=== PATIENT | male | born 1940 | race African-American/Black ===

== ENCOUNTER 2021-05-31 16:32 | Inpatient (IN) | payer MEDICARE, MEDICAID ==
[~2021-05-31] VITALS: Ht 177.8 cm; Wt 93.0 kg
[2021-05-31 18:33] LABS: BASOPHILS % 0.4 % (0.0-2.0); EOSINOPHILS % 4.4 % (0.0-5.0); HEMATOCRIT. 36.8 % (42.0-52.0); HEMOGLOBIN. 11.8 g/dL (14.0-18.0); MEAN CORPUSCULAR HEMOGLOBIN 27.4 pg (28.0-32.0); MEAN CORPUSCULAR VOLUME 85.6 fL (80.0-94.0); MEAN PLATELET VOLUME 7.8 fl (7.4-10.4); MONOCYTES % 7.5 % (2.0-8.0); NEUTROPHILS % 69.7 % (40.0-76.0); PLATELET 321 x1000/uL (130-400)
[2021-05-31 18:38] LABS: CHLORIDE 106 mEq/L (98-107)
[2021-05-31] MEDS ORDERED: PIPERACILLIN/TAZ 3.375G PREMIX 50 ML IV NR (23:30)
[2021-05-31] MEDS ORDERED: PIPERACILLIN/TAZOBACTAM 3.375GM/50ML PREMIX IV ONE (23:30)
[2021-06-01 01:14] LABS: CLARITY URINE CLOUDY (CLEAR); COLOR URINE YELLOW (YELLOW); KETONES URINE NEGATIVE (NEGATIVE); LEUKOCYTE ESTERASE URINE 3+ (NEGATIVE); NITRITE URINE POSITIVE (NEGATIVE); OCCULT BLOOD URINE NEGATIVE (NEGATIVE); PH URINE 5.5 (4.5-8.0); PROTEIN URINE 1+ (NEGATIVE); SPECIFIC GRAVITY URINE 1.015 (1.005-1.030); UROBILINOGEN URINE 0.2 E.U./dL (0.2-1.0)
[2021-06-01] MEDS ORDERED: KETOROLAC 15MG/ML VIAL IV ONE (01:15)
[2021-06-01] MEDS: VANCOMYCIN 1 G PREMIX 200 ML IV SCH ×3 (01:32→15:36)
[2021-06-01 12:00] VITALS: BP 139/49
[2021-06-01] MEDS ORDERED: IPRATROPIUM/ALBUTEROL 0.5-3(2.5)MG/3ML NEB HHN PRN (12:15)
[2021-06-01] MEDS ORDERED: LORAZEPAM 0.5MG TABLET PO PRN (12:15)
[2021-06-01] MEDS ORDERED: ONDANSETRON HCL 4MG/2ML INJ IV PRN (12:15)
[2021-06-01] MEDS ORDERED: HYDROCODONE/ACETAMINOPHEN 5/325MG TABLET PO PRN (12:15)
[2021-06-01] MEDS ORDERED: ACETAMINOPHEN 325MG TABLET PO PRN (12:15)
[2021-06-01] MEDS ORDERED: DOCUSATE SODIUM 100MG CAPSULE PO PRN (12:15)
[2021-06-01] MEDS ORDERED: ASPIRIN 81MG EC TABLET PO NR (14:30)
[2021-06-01 15:30] LABS: INR 1.1; PROTHROMBIN TIME 11.6 sec (9.6-11.0)
[2021-06-01] MEDS: PIPERACILLIN/TAZOBACTAM 3.375 G in DEXTROSE 5% WATER 50 ML IV SCH ×2 (15:36→22:19)
[2021-06-01] MEDS: SODIUM CHLORIDE 0.45% 1,000 ML IV SCH ×2 (15:41→22:20)
[2021-06-01 16:00] VITALS: BP 149/47
[2021-06-01] MEDS ORDERED: ENOXAPARIN 30MG/0.3ML SYR SUBCUT SCH (18:00)
[2021-06-01 19:40] LABS: CLARITY URINE CLOUDY (CLEAR); COLOR URINE YELLOW (YELLOW); KETONES URINE NEGATIVE (NEGATIVE); LEUKOCYTE ESTERASE URINE 3+ (NEGATIVE); NITRITE URINE NEGATIVE (NEGATIVE); OCCULT BLOOD URINE 1+ (NEGATIVE); PROTEIN URINE 1+ (NEGATIVE); SPECIFIC GRAVITY URINE 1.019 (1.005-1.030); UROBILINOGEN URINE 0.2 E.U./dL (0.2-1.0)
[2021-06-01 20:00] VITALS: BP 154/54
[2021-06-01 20:31] VITALS: BP 174/47
[2021-06-02] VITALS: BP 121/43
[2021-06-02 04:00] VITALS: BP 147/66
[2021-06-02] MEDS: PIPERACILLIN/TAZOBACTAM 3.375 G in DEXTROSE 5% WATER 50 ML IV SCH ×3 (05:30→23:00)
[2021-06-02] MEDS: SODIUM CHLORIDE 0.45% 1,000 ML IV SCH ×3 (05:31→23:00)
[2021-06-02 07:26] LABS: BASOPHILS % 0.7 % (0.0-2.0); EOSINOPHILS % 4.7 % (0.0-5.0); HEMATOCRIT. 33.8 % (42.0-52.0); HEMOGLOBIN. 11.1 g/dL (14.0-18.0); LYMPHOCYTES % 15.5 % (20.0-50.0); MEAN CORPUSCULAR VOLUME 85.4 fL (80.0-94.0); MEAN PLATELET VOLUME 8.1 fl (7.4-10.4); MONOCYTES % 10.3 % (2.0-8.0); NEUTROPHILS % 68.8 % (40.0-76.0); PLATELET 312 x1000/uL (130-400); RED BLOOD CELL COUNT 3.96 mill/uL (4.7-6.1); RED CELL DISTRIBUTION WIDTH 14.9 % (11.6-14.6)
[2021-06-02 08:00] VITALS: BP 153/58
[2021-06-02] MEDS: ASPIRIN 81MG EC TABLET PO SCH (08:41)
[2021-06-02 12:00] VITALS: BP 149/57
[2021-06-02] MEDS: VANCOMYCIN 1 G PREMIX 200 ML IV SCH (13:51)
[2021-06-02 16:00] VITALS: BP 123/57
[2021-06-02 20:00] VITALS: BP 153/54
[2021-06-03] VITALS (8 sets, daily range): BP systolic 128–166; BP diastolic 45–98
[2021-06-03] MEDS: PIPERACILLIN/TAZOBACTAM 3.375 G in DEXTROSE 5% WATER 50 ML IV SCH ×3 (07:07→21:05)
[2021-06-03] MEDS: SODIUM CHLORIDE 0.45% 1,000 ML IV SCH (07:08)
[2021-06-03 07:29] LABS: BASOPHILS % 0.8 % (0.0-2.0); EOSINOPHILS % 5.3 % (0.0-5.0); HEMOGLOBIN. 11.4 g/dL (14.0-18.0); LYMPHOCYTES % 11.6 % (20.0-50.0); MEAN CORPUSCULAR HEMOGLOBIN 27.5 pg (28.0-32.0); MEAN CORPUSCULAR VOLUME 84.6 fL (80.0-94.0); MEAN PLATELET VOLUME 7.7 fl (7.4-10.4); MONOCYTES % 8.9 % (2.0-8.0); NEUTROPHILS % 73.4 % (40.0-76.0); PLATELET 311 x1000/uL (130-400); RED BLOOD CELL COUNT 4.14 mill/uL (4.7-6.1); RED CELL DISTRIBUTION WIDTH 14.6 % (11.6-14.6)
[2021-06-03 07:57] LABS: PHOSPHORUS 2.1 mg/dL (2.5-4.9)
[2021-06-03] MEDS: ASPIRIN 81MG EC TABLET PO SCH (08:19)
[2021-06-03] MEDS: CLONIDINE 0.1MG TABLET PO PRN ×2 (09:03→18:12)
[2021-06-03] MEDS ORDERED: HEPARIN SODIUM 1,000 UNIT/1ML VIAL IV ONE (09:41)
[2021-06-03] MEDS: SODIUM CHLORIDE 0.9% 1,000 ML IV SCH ×2 (09:45→19:58)
[2021-06-03] MEDS ORDERED: MAGNESIUM 2 G PREMIX 50 ML IV NR (11:00)
[2021-06-03] MEDS ORDERED: SODIUM PHOS,M-BASIC-D-BASIC 15 MM in DEXT 5% WATER 245 ML IV NR (11:00)
[2021-06-03] MEDS ORDERED: LIDOCAINE HCL 1% 20ML VIAL (Pyxis) INJ ONE (12:12)
[2021-06-03] MEDS ORDERED: IODIXANOL 320MG/ML 100 ML BOTTLE IV ONE (12:13)
[2021-06-03] MEDS ORDERED: IOHEXOL-300 100 ML BOTTLE ONE (12:13)
[2021-06-03] MEDS ORDERED: MIDAZOLAM HCL 2 MG/2 ML VIAL ONE (12:18)
[2021-06-03] MEDS ORDERED: FENTANYL CITRATE/PF 50MCG/ML 2ML VIAL ONE (12:18)
[2021-06-03] MEDS ORDERED: ASPIRIN/SOD BICARB/CITRIC ACID 324MG TAB EFF ONE (12:28)
[2021-06-03] MEDS ORDERED: MORPHINE SULFATE 2 MG/ML CPJ (NOT FOR IM USE) IV PRN (13:15)
[2021-06-03] MEDS ORDERED: ATROPINE SULFATE 1MG/10ML SYR IV PRN (13:15)
[2021-06-03] MEDS ORDERED: SODIUM CHLORIDE 0.45% 1,000 ML IV ONE (13:15)
[2021-06-03] MEDS ORDERED: ONDANSETRON HCL 4MG/2ML INJ IV PRN (13:15)
[2021-06-03] MEDS ORDERED: LABETALOL HCL 5MG/ML VIAL 20ML IV ONE (13:46)
[2021-06-03] MEDS ORDERED: NALOXONE HCL 0.4MG/ML VIAL IV PRN (14:45)
[2021-06-03] MEDS: TAMSULOSIN HCL 0.4MG SR CAPSULE PO SCH (16:09)
[2021-06-03] MEDS: BLOOD SUGAR DIAGNOSTIC STRIP TEST SCH ×2 (17:40→21:03)
[2021-06-03] MEDS: INSULIN LISPRO 100 UNITS/ML SUBCUT SCH ×2 (17:47→21:06)
[2021-06-03] MEDS: VANCOMYCIN 1 G PREMIX 200 ML IV SCH (18:20)
[2021-06-04] VITALS (12 sets, daily range): BP systolic 137–173; BP diastolic 62–91
[2021-06-04] MEDS: CLONIDINE 0.1MG TABLET PO PRN ×2 (03:27→16:11)
[2021-06-04] MEDS: SODIUM CHLORIDE 0.9% 1,000 ML IV SCH ×2 (04:57→16:13)
[2021-06-04] MEDS: VANCOMYCIN 1 G PREMIX 200 ML IV SCH (05:24)
[2021-06-04] MEDS: BLOOD SUGAR DIAGNOSTIC STRIP TEST SCH ×4 (06:17→21:11)
[2021-06-04 06:56] LABS: HEMATOCRIT. 34.2 % (42.0-52.0); HEMOGLOBIN. 10.8 g/dL (14.0-18.0); MEAN CORPUSCULAR HEMOGLOBIN 26.9 pg (28.0-32.0); MEAN CORPUSCULAR VOLUME 85.2 fL (80.0-94.0); MEAN PLATELET VOLUME 8.6 fl (7.4-10.4); PLATELET 295 x1000/uL (130-400); RED BLOOD CELL COUNT 4.01 mill/uL (4.7-6.1); RED CELL DISTRIBUTION WIDTH 14.9 % (11.6-14.6)
[2021-06-04] MEDS: PIPERACILLIN/TAZOBACTAM 3.375 G in DEXTROSE 5% WATER 50 ML IV SCH ×2 (06:57→21:53)
[2021-06-04 07:17] LABS: PHOSPHORUS 2.2 mg/dL (2.5-4.9)
[2021-06-04] MEDS: INSULIN LISPRO 100 UNITS/ML SUBCUT SCH ×4 (07:55→21:17)
[2021-06-04] MEDS: TAMSULOSIN HCL 0.4MG SR CAPSULE PO SCH (08:03)
[2021-06-04] MEDS: ASPIRIN 81MG EC TABLET PO SCH (08:03)
[2021-06-04 09:09] LABS: IMMUNOGLOBULIN A 424 mg/dL (61-437); IMMUNOGLOBULIN G 1953 mg/dL (603-1613); IMMUNOGLOBULIN M 20 mg/dL (15-143)
[2021-06-04] MEDS ORDERED: BISACODYL 5MG TABLET PO PRN (13:00)
[2021-06-04] MEDS ORDERED: MAGNESIUM 2 G PREMIX 50 ML IV NR (13:30)
[2021-06-04] MEDS: FINASTERIDE 5MG TABLET PO SCH (13:44)
[2021-06-04] MEDS ORDERED: SODIUM PHOS,M-BASIC-D-BASIC 15 MM in DEXT 5% WATER 245 ML IV NR (14:00)
[2021-06-04] MEDS: INSULIN GLARGINE UD 100 UNITS/ML SYR SUBCUT SCH (21:55)
[2021-06-05] VITALS (13 sets, daily range): BP systolic 120–161; BP diastolic 60–100
[2021-06-05] MEDS: SODIUM CHLORIDE 0.9% 1,000 ML IV SCH ×4 (01:45→21:52)
[2021-06-05] MEDS: PIPERACILLIN/TAZOBACTAM 3.375 G in DEXTROSE 5% WATER 50 ML IV SCH ×3 (05:26→21:51)
[2021-06-05] MEDS: BLOOD SUGAR DIAGNOSTIC STRIP TEST SCH ×4 (06:50→21:18)
[2021-06-05 07:46] LABS: PLATELET ESTIMATE NORMAL
[2021-06-05 07:51] LABS: HEMATOCRIT. 31.7 % (42.0-52.0); HEMOGLOBIN. 10.4 g/dL (14.0-18.0); MEAN CORPUSCULAR HEMOGLOBIN 27.8 pg (28.0-32.0); MEAN CORPUSCULAR VOLUME 84.5 fL (80.0-94.0); MEAN PLATELET VOLUME 8.4 fl (7.4-10.4); PLATELET 265 x1000/uL (130-400); RED BLOOD CELL COUNT 3.75 mill/uL (4.7-6.1); RED CELL DISTRIBUTION WIDTH 14.7 % (11.6-14.6)
[2021-06-05 08:09] LABS: PHOSPHORUS 2.4 mg/dL (2.5-4.9)
[2021-06-05] MEDS: FINASTERIDE 5MG TABLET PO SCH (08:35)
[2021-06-05] MEDS: ASPIRIN 81MG EC TABLET PO SCH (08:36)
[2021-06-05] MEDS: TAMSULOSIN HCL 0.4MG SR CAPSULE PO SCH (08:37)
[2021-06-05] MEDS: INSULIN LISPRO 100 UNITS/ML SUBCUT SCH ×4 (08:37→21:51)
[2021-06-05] MEDS: INSULIN GLARGINE UD 100 UNITS/ML SYR SUBCUT SCH ×2 (11:52→21:51)
[2021-06-05] MEDS: VANCOMYCIN 1 G PREMIX 200 ML IV SCH (11:52)
[2021-06-05] MEDS ORDERED: POTASSIUM-SODIUM PHOSPHATE POWDER PACKET PO NR (16:29)
[2021-06-05] MEDS: HYDROCODONE/APAP 7.5/325MG 1 TAB TABLET PO PRN (21:56)
[2021-06-06] VITALS (13 sets, daily range): BP systolic 112–175; BP diastolic 74–100
[2021-06-06] MEDS: PIPERACILLIN/TAZOBACTAM 3.375 G in DEXTROSE 5% WATER 50 ML IV SCH ×3 (05:10→22:01)
[2021-06-06] MEDS: INSULIN LISPRO 100 UNITS/ML SUBCUT SCH ×4 (07:05→22:02)
[2021-06-06] MEDS: BLOOD SUGAR DIAGNOSTIC STRIP TEST SCH ×4 (07:05→21:55)
[2021-06-06 07:07] LABS: A/G RATIO 0.6 (0.7-1.7); ALBUMIN 2.7 g/dL (2.9-4.4); ALPHA-1-GLOBULIN 0.4 g/dL (0.0-0.4); ALPHA-2-GLOBULIN 1.2 g/dL (0.4-1.0); BETA GLOBULIN 1.1 g/dL (0.7-1.3); GAMMA GLOBULINS 1.9 g/dL (0.4-1.8); GLOBULIN TOTAL 4.7 g/dL (2.2-3.9); M-SPIKE Not Observed g/dL (Not Observed); TOTAL PROTEIN SERUM 7.4 g/dL (6.0-8.5)
[2021-06-06 08:02] LABS: BASOPHILS % 0.4 % (0.0-2.0); EOSINOPHILS % 6.4 % (0.0-5.0); HEMATOCRIT. 33.5 % (42.0-52.0); HEMOGLOBIN. 11.1 g/dL (14.0-18.0); LYMPHOCYTES % 23.6 % (20.0-50.0); MEAN CORPUSCULAR HEMOGLOBIN 28.3 pg (28.0-32.0); MEAN CORPUSCULAR VOLUME 85.2 fL (80.0-94.0); MEAN PLATELET VOLUME 8.4 fl (7.4-10.4); MONOCYTES % 14.4 % (2.0-8.0); NEUTROPHILS % 55.2 % (40.0-76.0); PLATELET 256 x1000/uL (130-400); RED BLOOD CELL COUNT 3.93 mill/uL (4.7-6.1); RED CELL DISTRIBUTION WIDTH 14.5 % (11.6-14.6)
[2021-06-06] MEDS: SODIUM CHLORIDE 0.9% 1,000 ML IV SCH (08:10)
[2021-06-06 08:14] LABS: PHOSPHORUS 2.5 mg/dL (2.5-4.9)
[2021-06-06] MEDS: TAMSULOSIN HCL 0.4MG SR CAPSULE PO SCH (08:53)
[2021-06-06] MEDS: ASPIRIN 81MG EC TABLET PO SCH (08:53)
[2021-06-06] MEDS: FINASTERIDE 5MG TABLET PO SCH (08:53)
[2021-06-06] MEDS: HYDROCODONE/APAP 7.5/325MG 1 TAB TABLET PO PRN (09:53)
[2021-06-06] MEDS ORDERED: GADOTERATE MEGLUMINE 5 MMOL/10 ML VIAL IV ONE (10:05)
[2021-06-06] MEDS ORDERED: MAGNESIUM 2 G PREMIX 50 ML IV NR (10:30)
[2021-06-06] MEDS: INSULIN GLARGINE UD 100 UNITS/ML SYR SUBCUT SCH ×2 (12:14→22:03)
[2021-06-06 14:33] LABS: PLATELET ESTIMATE NORMAL
[2021-06-06] MEDS: VANCOMYCIN 1 G PREMIX 200 ML IV SCH (14:57)
[2021-06-06] MEDS: CLONIDINE 0.1MG TABLET PO PRN (18:31)
[2021-06-07] VITALS (10 sets, daily range): BP systolic 142–195; BP diastolic 54–100
[2021-06-07] MEDS: PIPERACILLIN/TAZOBACTAM 3.375 G in DEXTROSE 5% WATER 50 ML IV SCH ×3 (05:37→23:15)
[2021-06-07] MEDS: SODIUM CHLORIDE 0.9% 1,000 ML IV SCH ×3 (05:37→13:45)
[2021-06-07] MEDS: BLOOD SUGAR DIAGNOSTIC STRIP TEST SCH ×4 (06:52→21:00)
[2021-06-07] MEDS: INSULIN LISPRO 100 UNITS/ML SUBCUT SCH ×4 (06:53→23:17)
[2021-06-07 07:03] LABS: CHLORIDE 104 mEq/L (98-107)
[2021-06-07 07:12] LABS: PHOSPHORUS 1.9 mg/dL (2.5-4.9)
[2021-06-07 07:13] LABS: BASOPHILS % 0.5 % (0.0-2.0); EOSINOPHILS % 8.8 % (0.0-5.0); HEMATOCRIT. 33.3 % (42.0-52.0); HEMOGLOBIN. 10.8 g/dL (14.0-18.0); LYMPHOCYTES % 16.5 % (20.0-50.0); MEAN CORPUSCULAR HEMOGLOBIN 27.7 pg (28.0-32.0); MEAN CORPUSCULAR VOLUME 85.5 fL (80.0-94.0); MEAN PLATELET VOLUME 8.3 fl (7.4-10.4); MONOCYTES % 11.5 % (2.0-8.0); NEUTROPHILS % 62.7 % (40.0-76.0); PLATELET 249 x1000/uL (130-400); RED BLOOD CELL COUNT 3.89 mill/uL (4.7-6.1); RED CELL DISTRIBUTION WIDTH 14.4 % (11.6-14.6)
[2021-06-07] MEDS: ACETAMINOPHEN 325MG TABLET PO PRN ×2 (08:02→17:16)
[2021-06-07] MEDS: CLONIDINE 0.1MG TABLET PO PRN ×2 (08:25→17:17)
[2021-06-07] MEDS: ASPIRIN 81MG EC TABLET PO SCH (09:25)
[2021-06-07] MEDS: FINASTERIDE 5MG TABLET PO SCH (09:25)
[2021-06-07] MEDS: TAMSULOSIN HCL 0.4MG SR CAPSULE PO SCH (09:25)
[2021-06-07] MEDS: INSULIN GLARGINE UD 100 UNITS/ML SYR SUBCUT SCH ×2 (09:30→23:16)
[2021-06-07] MEDS: VANCOMYCIN 1 G PREMIX 200 ML IV SCH (11:59)
[2021-06-07] MEDS: AMLODIPINE 5MG TABLET PO SCH (14:32)
[2021-06-08] VITALS: BP 153/59
[2021-06-08] MEDS: HYDROCODONE/ACETAMINOPHEN 5/325MG TABLET PO PRN ×3 (01:31→22:21)
[2021-06-08] MEDS: SODIUM CHLORIDE 0.9% 1,000 ML IV SCH ×3 (05:28→20:19)
[2021-06-08] MEDS: PIPERACILLIN/TAZOBACTAM 3.375 G in DEXTROSE 5% WATER 50 ML IV SCH ×2 (05:32→15:21)
[2021-06-08] MEDS: BLOOD SUGAR DIAGNOSTIC STRIP TEST SCH ×4 (05:51→21:00)
[2021-06-08] MEDS: INSULIN LISPRO 100 UNITS/ML SUBCUT SCH ×4 (05:51→21:00)
[2021-06-08 07:31] LABS: CHLORIDE 107 mEq/L (98-107)
[2021-06-08 07:37] LABS: BASOPHILS % 0.4 % (0.0-2.0); EOSINOPHILS % 10.6 % (0.0-5.0); HEMOGLOBIN. 11.8 g/dL (14.0-18.0); LYMPHOCYTES % 22.7 % (20.0-50.0); MEAN CORPUSCULAR HEMOGLOBIN 29.4 pg (28.0-32.0); MEAN CORPUSCULAR VOLUME 84.7 fL (80.0-94.0); MEAN PLATELET VOLUME 8.5 fl (7.4-10.4); MONOCYTES % 12.7 % (2.0-8.0); NEUTROPHILS % 53.6 % (40.0-76.0); PLATELET 227 x1000/uL (130-400); RED BLOOD CELL COUNT 4.01 mill/uL (4.7-6.1); RED CELL DISTRIBUTION WIDTH 14.3 % (11.6-14.6)
[2021-06-08 07:42] LABS: PHOSPHORUS 1.8 mg/dL (2.5-4.9)
[2021-06-08 08:00] VITALS: BP 172/75
[2021-06-08] MEDS: FINASTERIDE 5MG TABLET PO SCH (08:51)
[2021-06-08] MEDS: AMLODIPINE 5MG TABLET PO SCH (08:52)
[2021-06-08] MEDS: TAMSULOSIN HCL 0.4MG SR CAPSULE PO SCH (08:52)
[2021-06-08] MEDS: ASPIRIN 81MG EC TABLET PO SCH (08:52)
[2021-06-08] MEDS: INSULIN GLARGINE UD 100 UNITS/ML SYR SUBCUT SCH ×2 (10:31→22:24)
[2021-06-08] MEDS: MAGNESIUM OXIDE 400MG TABLET PO SCH (10:31)
[2021-06-08] MEDS: ENOXAPARIN 40MG/0.4ML SYR SUBCUT SCH (11:38)
[2021-06-08 12:00] VITALS: BP 149/64
[2021-06-08 12:20] VITALS: BP 149/64
[2021-06-08] MEDS ORDERED: VANCOMYCIN 1 G PREMIX 200 ML IV SCH (14:00)
[2021-06-08] MEDS ORDERED: POTASSIUM PHOS,M-BASIC-D-BASIC 15 MMOL in DEXT 5% WATER 250 ML IV SCH (15:00)
[2021-06-08 20:00] VITALS: BP 161/62
[2021-06-08] MEDS: CLONIDINE 0.1MG TABLET PO PRN (22:21)
[2021-06-09] VITALS: BP 187/66
[2021-06-09] MEDS: PIPERACILLIN/TAZOBACTAM 3.375 G in DEXTROSE 5% WATER 50 ML IV SCH ×4 (00:26→22:53)
[2021-06-09 04:00] VITALS: BP 155/59
[2021-06-09] MEDS: BLOOD SUGAR DIAGNOSTIC STRIP TEST SCH ×4 (06:14→21:20)
[2021-06-09] MEDS: INSULIN LISPRO 100 UNITS/ML SUBCUT SCH ×4 (07:10→21:00)
[2021-06-09 08:00] VITALS: BP 157/88
[2021-06-09] MEDS: MAGNESIUM OXIDE 400MG TABLET PO SCH (08:23)
[2021-06-09] MEDS: ENOXAPARIN 40MG/0.4ML SYR SUBCUT SCH (08:26)
[2021-06-09] MEDS: FINASTERIDE 5MG TABLET PO SCH (08:26)
[2021-06-09] MEDS: ASPIRIN 81MG EC TABLET PO SCH (08:26)
[2021-06-09] MEDS: INSULIN GLARGINE UD 100 UNITS/ML SYR SUBCUT SCH ×2 (08:29→22:54)
[2021-06-09] MEDS: AMLODIPINE 5MG TABLET PO SCH (08:41)
[2021-06-09] MEDS: TAMSULOSIN HCL 0.4MG SR CAPSULE PO SCH (08:41)
[2021-06-09 09:08] LABS: BASOPHILS % 0.4 % (0.0-2.0); HEMATOCRIT. 33.6 % (42.0-52.0); HEMOGLOBIN. 11.1 g/dL (14.0-18.0); MEAN CORPUSCULAR HEMOGLOBIN 27.9 pg (28.0-32.0); MEAN CORPUSCULAR VOLUME 84.9 fL (80.0-94.0); MEAN PLATELET VOLUME 8.6 fl (7.4-10.4); MONOCYTES % 12.1 % (2.0-8.0); NEUTROPHILS % 60.5 % (40.0-76.0); PLATELET 260 x1000/uL (130-400); RED BLOOD CELL COUNT 3.96 mill/uL (4.7-6.1); RED CELL DISTRIBUTION WIDTH 14.4 % (11.6-14.6)
[2021-06-09 09:20] LABS: CHLORIDE 105 mEq/L (98-107)
[2021-06-09] MEDS: POTASSIUM-SODIUM PHOSPHATE POWDER PACKET PO SCH ×2 (10:00→21:22)
[2021-06-09] MEDS ORDERED: MAGNESIUM OXIDE 400MG TABLET PO SCH (10:00)
[2021-06-09] MEDS: VANCOMYCIN 1 G PREMIX 200 ML IV SCH (14:02)
[2021-06-09] MEDS: MEGESTROL ACETATE 400 MG/10 ML UDC PO SCH (14:02)
[2021-06-09] MEDS: ACETAMINOPHEN 325MG TABLET PO PRN (17:31)
[2021-06-09] MEDS: CLONIDINE 0.1MG TABLET PO PRN (17:31)
[2021-06-09 20:00] VITALS: BP 136/54
[2021-06-10] VITALS: BP 134/61
[2021-06-10 04:00] VITALS: BP 141/76
[2021-06-10] MEDS: PIPERACILLIN/TAZOBACTAM 3.375 G in DEXTROSE 5% WATER 50 ML IV SCH ×2 (05:40→18:40)
[2021-06-10] MEDS: INSULIN LISPRO 100 UNITS/ML SUBCUT SCH ×4 (06:20→21:00)
[2021-06-10] MEDS: BLOOD SUGAR DIAGNOSTIC STRIP TEST SCH ×4 (06:20→21:42)
[2021-06-10] MEDS: ENOXAPARIN 40MG/0.4ML SYR SUBCUT SCH (09:23)
[2021-06-10] MEDS: MEGESTROL ACETATE 400 MG/10 ML UDC PO SCH (09:23)
[2021-06-10] MEDS: MAGNESIUM OXIDE 400MG TABLET PO SCH (09:24)
[2021-06-10] MEDS: FINASTERIDE 5MG TABLET PO SCH (09:24)
[2021-06-10] MEDS: ACETAMINOPHEN 325MG TABLET PO PRN (09:24)
[2021-06-10] MEDS: ASPIRIN 81MG EC TABLET PO SCH (09:24)
[2021-06-10] MEDS: TAMSULOSIN HCL 0.4MG SR CAPSULE PO SCH (09:24)
[2021-06-10] MEDS: AMLODIPINE 5MG TABLET PO SCH (09:24)
[2021-06-10] MEDS: POTASSIUM-SODIUM PHOSPHATE POWDER PACKET PO SCH ×2 (09:28→17:26)
[2021-06-10] MEDS: INSULIN GLARGINE UD 100 UNITS/ML SYR SUBCUT SCH ×2 (09:30→22:00)
[2021-06-10 11:09] LABS: BASOPHILS % 0.5 % (0.0-2.0); EOSINOPHILS % 6.8 % (0.0-5.0); HEMOGLOBIN. 10.9 g/dL (14.0-18.0); LYMPHOCYTES % 15.8 % (20.0-50.0); MEAN CORPUSCULAR VOLUME 84.3 fL (80.0-94.0); MEAN PLATELET VOLUME 8.4 fl (7.4-10.4); MONOCYTES % 9.7 % (2.0-8.0); NEUTROPHILS % 67.2 % (40.0-76.0); PLATELET 283 x1000/uL (130-400); RED BLOOD CELL COUNT 4.04 mill/uL (4.7-6.1); RED CELL DISTRIBUTION WIDTH 14.5 % (11.6-14.6)
[2021-06-10 11:21] LABS: CHLORIDE 104 mEq/L (98-107)
[2021-06-10 11:39] LABS: PHOSPHORUS 1.7 mg/dL (2.5-4.9)
[2021-06-10 12:00] VITALS: BP 140/67
[2021-06-10 16:00] VITALS: BP 184/66
[2021-06-10] MEDS ORDERED: POTASSIUM PHOS,M-BASIC-D-BASIC 30 MMOL in DEXT 5% WATER 500 ML IV SCH (16:00)
[2021-06-10] MEDS: SODIUM CHLORIDE 0.9% 1,000 ML IV SCH ×3 (16:26→21:42)
[2021-06-10] MEDS: VANCOMYCIN 1 G PREMIX 200 ML IV SCH (16:26)
[2021-06-10] MEDS: CLONIDINE 0.1MG TABLET PO PRN ×2 (17:26→22:10)
[2021-06-10 20:00] VITALS: BP 169/62
[2021-06-11] VITALS: BP 166/54
[2021-06-11] MEDS: PIPERACILLIN/TAZOBACTAM 3.375 G in DEXTROSE 5% WATER 50 ML IV SCH ×4 (03:11→22:36)
[2021-06-11] MEDS: HYDROCODONE/ACETAMINOPHEN 5/325MG TABLET PO PRN ×2 (06:17→16:52)
[2021-06-11] MEDS: BLOOD SUGAR DIAGNOSTIC STRIP TEST SCH ×4 (06:46→21:20)
[2021-06-11] MEDS: INSULIN LISPRO 100 UNITS/ML SUBCUT SCH ×4 (07:10→21:00)
[2021-06-11 08:00] VITALS: BP 137/75
[2021-06-11] MEDS: FINASTERIDE 5MG TABLET PO SCH (08:42)
[2021-06-11] MEDS: AMLODIPINE 5MG TABLET PO SCH (08:42)
[2021-06-11] MEDS: ASPIRIN 81MG EC TABLET PO SCH (08:42)
[2021-06-11] MEDS: MEGESTROL ACETATE 400 MG/10 ML UDC PO SCH (08:42)
[2021-06-11] MEDS: TAMSULOSIN HCL 0.4MG SR CAPSULE PO SCH (08:42)
[2021-06-11] MEDS: MAGNESIUM OXIDE 400MG TABLET PO SCH (08:43)
[2021-06-11] MEDS: SODIUM CHLORIDE 0.9% 1,000 ML IV SCH (08:43)
[2021-06-11] MEDS: ENOXAPARIN 40MG/0.4ML SYR SUBCUT SCH (08:43)
[2021-06-11] MEDS: POTASSIUM-SODIUM PHOSPHATE POWDER PACKET PO SCH ×2 (08:47→16:38)
[2021-06-11] MEDS: INSULIN GLARGINE UD 100 UNITS/ML SYR SUBCUT SCH ×2 (08:48→21:37)
[2021-06-11] MEDS ORDERED: BLOO-1465 MT (11:20)
[2021-06-11] MEDS ORDERED: AMLO5TAB88 PO (11:20)
[2021-06-11] MEDS ORDERED: TAMS-11 PO (11:20)
[2021-06-11] MEDS ORDERED: MAGN400T26 MT (11:20)
[2021-06-11] MEDS ORDERED: [UNRECOGNIZED DRUG - CODE] MC (11:20)
[2021-06-11] MEDS ORDERED: LANTUSUD SUBCUT (11:20)
[2021-06-11] MEDS ORDERED: INSLIS SUBCUT (11:20)
[2021-06-11] MEDS ORDERED: SULF1TAB48 MT (11:20)
[2021-06-11] MEDS ORDERED: FINA5TAB11 PO (11:20)
[2021-06-11] MEDS ORDERED: LEVO750T46 MT (11:20)
[2021-06-11] MEDS ORDERED: NAPH1POW3 PO (11:20)
[2021-06-11] MEDS ORDERED: ASPI-1406 PO (11:20)
[2021-06-11] MEDS ORDERED: MEGE400O4 PO (11:20)
[2021-06-11 11:24] LABS: BASOPHILS % 0.4 % (0.0-2.0); EOSINOPHILS % 7.1 % (0.0-5.0); HEMATOCRIT. 32.1 % (42.0-52.0); HEMOGLOBIN. 10.2 g/dL (14.0-18.0); LYMPHOCYTES % 19.8 % (20.0-50.0); MEAN CORPUSCULAR HEMOGLOBIN 27.4 pg (28.0-32.0); MEAN CORPUSCULAR VOLUME 85.9 fL (80.0-94.0); MEAN PLATELET VOLUME 8.3 fl (7.4-10.4); NEUTROPHILS % 60.7 % (40.0-76.0); PLATELET 307 x1000/uL (130-400); RED BLOOD CELL COUNT 3.73 mill/uL (4.7-6.1); RED CELL DISTRIBUTION WIDTH 14.6 % (11.6-14.6)
[2021-06-11 11:39] LABS: CHLORIDE 105 mEq/L (98-107)
[2021-06-11 12:00] VITALS: BP 147/57
[2021-06-11] MEDS: VANCOMYCIN 1 G PREMIX 200 ML IV SCH (13:46)
[2021-06-11 14:49] LABS: PHOSPHORUS 2.6 mg/dL (2.5-4.9)
[2021-06-11 16:00] VITALS: BP 161/56
[2021-06-11] MEDS: CLONIDINE 0.1MG TABLET PO PRN (18:02)
[2021-06-11 20:00] VITALS: BP 143/54
[2021-06-12 04:00] VITALS: BP 143/54
[2021-06-12] MEDS: PIPERACILLIN/TAZOBACTAM 3.375 G in DEXTROSE 5% WATER 50 ML IV SCH ×3 (05:43→21:31)
[2021-06-12] MEDS: BLOOD SUGAR DIAGNOSTIC STRIP TEST SCH ×4 (06:40→21:31)
[2021-06-12] MEDS: INSULIN LISPRO 100 UNITS/ML SUBCUT SCH ×4 (06:43→21:34)
[2021-06-12 07:04] LABS: BASOPHILS % 0.4 % (0.0-2.0); EOSINOPHILS % 6.5 % (0.0-5.0); HEMOGLOBIN. 10.6 g/dL (14.0-18.0); LYMPHOCYTES % 18.1 % (20.0-50.0); MEAN CORPUSCULAR HEMOGLOBIN 27.9 pg (28.0-32.0); MEAN CORPUSCULAR VOLUME 84.4 fL (80.0-94.0); MEAN PLATELET VOLUME 8.6 fl (7.4-10.4); MONOCYTES % 13.4 % (2.0-8.0); NEUTROPHILS % 61.6 % (40.0-76.0); PLATELET 321 x1000/uL (130-400); RED CELL DISTRIBUTION WIDTH 14.2 % (11.6-14.6)
[2021-06-12 07:16] LABS: CHLORIDE 106 mEq/L (98-107)
[2021-06-12 08:00] VITALS: BP 141/72
[2021-06-12] MEDS: POTASSIUM-SODIUM PHOSPHATE POWDER PACKET PO SCH ×2 (08:34→17:16)
[2021-06-12] MEDS: ASPIRIN 81MG EC TABLET PO SCH (08:34)
[2021-06-12] MEDS: ENOXAPARIN 40MG/0.4ML SYR SUBCUT SCH (08:34)
[2021-06-12] MEDS: MEGESTROL ACETATE 400 MG/10 ML UDC PO SCH (08:34)
[2021-06-12] MEDS: TAMSULOSIN HCL 0.4MG SR CAPSULE PO SCH (08:34)
[2021-06-12] MEDS: FINASTERIDE 5MG TABLET PO SCH (08:35)
[2021-06-12] MEDS: ACETAMINOPHEN 325MG TABLET PO PRN (08:35)
[2021-06-12] MEDS: MAGNESIUM OXIDE 400MG TABLET PO SCH (08:35)
[2021-06-12] MEDS: AMLODIPINE 5MG TABLET PO SCH (08:35)
[2021-06-12] MEDS: INSULIN GLARGINE UD 100 UNITS/ML SYR SUBCUT SCH ×2 (08:37→21:33)
[2021-06-12 12:00] VITALS: BP 158/64
[2021-06-12] MEDS: VANCOMYCIN 1 G PREMIX 200 ML IV SCH (13:22)
[2021-06-12] MEDS ORDERED: SODIUM PHOS,M-BASIC-D-BASIC 10 MM in DEXT 5% WATER 246.6667 ML IV SCH (15:00)
[2021-06-12 16:00] VITALS: BP 175/72
[2021-06-12] MEDS: CLONIDINE 0.1MG TABLET PO PRN ×2 (17:16→21:32)
[2021-06-12 20:00] VITALS: BP 179/78
[2021-06-12] MEDS ORDERED: POTASSIUM PHOS,M-BASIC-D-BASIC 10 MMOL in DEXT 5% WATER 246.6667 ML IV SCH (20:00)
[2021-06-13] VITALS: BP_SYST 158; BP_SYST 162; BP_DIAS 72
[2021-06-13 04:00] VITALS: BP 160/73
[2021-06-13] MEDS: CLONIDINE 0.1MG TABLET PO PRN (04:53)
[2021-06-13] MEDS: BLOOD SUGAR DIAGNOSTIC STRIP TEST SCH ×4 (05:53→21:00)
[2021-06-13] MEDS: PIPERACILLIN/TAZOBACTAM 3.375 G in DEXTROSE 5% WATER 50 ML IV SCH ×2 (05:53→14:39)
[2021-06-13] MEDS: INSULIN LISPRO 100 UNITS/ML SUBCUT SCH ×4 (06:04→21:00)
[2021-06-13 06:42] LABS: BASOPHILS % 0.4 % (0.0-2.0); EOSINOPHILS % 6.7 % (0.0-5.0); HEMATOCRIT. 33.1 % (42.0-52.0); LYMPHOCYTES % 17.2 % (20.0-50.0); MEAN CORPUSCULAR HEMOGLOBIN 27.7 pg (28.0-32.0); MEAN CORPUSCULAR VOLUME 83.8 fL (80.0-94.0); MEAN PLATELET VOLUME 8.5 fl (7.4-10.4); MONOCYTES % 13.5 % (2.0-8.0); NEUTROPHILS % 62.2 % (40.0-76.0); PLATELET 312 x1000/uL (130-400); RED BLOOD CELL COUNT 3.95 mill/uL (4.7-6.1); RED CELL DISTRIBUTION WIDTH 14.3 % (11.6-14.6)
[2021-06-13 07:06] LABS: CHLORIDE 107 mEq/L (98-107)
[2021-06-13 08:00] VITALS: BP 130/60
[2021-06-13] MEDS: POTASSIUM-SODIUM PHOSPHATE POWDER PACKET PO SCH ×2 (09:26→16:59)
[2021-06-13] MEDS: ENOXAPARIN 40MG/0.4ML SYR SUBCUT SCH (09:26)
[2021-06-13] MEDS: MEGESTROL ACETATE 400 MG/10 ML UDC PO SCH (09:26)
[2021-06-13] MEDS: TAMSULOSIN HCL 0.4MG SR CAPSULE PO SCH (09:27)
[2021-06-13] MEDS: FINASTERIDE 5MG TABLET PO SCH (09:27)
[2021-06-13] MEDS: ASPIRIN 81MG EC TABLET PO SCH (09:27)
[2021-06-13] MEDS: AMLODIPINE 5MG TABLET PO SCH (09:27)
[2021-06-13] MEDS: MAGNESIUM OXIDE 400MG TABLET PO SCH (09:27)
[2021-06-13] MEDS: INSULIN GLARGINE UD 100 UNITS/ML SYR SUBCUT SCH ×2 (09:40→22:00)
[2021-06-13] MEDS: ACETAMINOPHEN 325MG TABLET PO PRN (09:40)
[2021-06-13 12:00] VITALS: BP 116/64
[2021-06-13] MEDS: VANCOMYCIN 1 G PREMIX 200 ML IV SCH (13:03)
[2021-06-13 16:00] VITALS: BP 143/63
[2021-06-13 20:00] VITALS: BP 143/82
[2021-06-14] VITALS: BP 117/51
[2021-06-14] MEDS: PIPERACILLIN/TAZOBACTAM 3.375 G in DEXTROSE 5% WATER 50 ML IV SCH ×4 (00:39→23:20)
[2021-06-14] MEDS: BLOOD SUGAR DIAGNOSTIC STRIP TEST SCH ×4 (07:10→21:00)
[2021-06-14] MEDS: POTASSIUM-SODIUM PHOSPHATE POWDER PACKET PO SCH ×2 (09:20→17:39)
[2021-06-14] MEDS: ENOXAPARIN 40MG/0.4ML SYR SUBCUT SCH (09:20)
[2021-06-14] MEDS: MAGNESIUM OXIDE 400MG TABLET PO SCH (09:21)
[2021-06-14] MEDS: ACETAMINOPHEN 325MG TABLET PO PRN (09:21)
[2021-06-14] MEDS: TAMSULOSIN HCL 0.4MG SR CAPSULE PO SCH (09:21)
[2021-06-14] MEDS: FINASTERIDE 5MG TABLET PO SCH (09:22)
[2021-06-14] MEDS: ASPIRIN 81MG EC TABLET PO SCH (09:22)
[2021-06-14] MEDS: AMLODIPINE 5MG TABLET PO SCH (09:22)
[2021-06-14] MEDS: INSULIN LISPRO 100 UNITS/ML SUBCUT SCH ×4 (09:23→21:00)
[2021-06-14] MEDS: INSULIN GLARGINE UD 100 UNITS/ML SYR SUBCUT SCH ×2 (09:30→23:20)
[2021-06-14] MEDS: MEGESTROL ACETATE 400 MG/10 ML UDC PO SCH (09:43)
[2021-06-14] MEDS: VANCOMYCIN 1 G PREMIX 200 ML IV SCH (19:00)
[2021-06-14 20:00] VITALS: BP 180/82
[2021-06-14] MEDS: CLONIDINE 0.1MG TABLET PO PRN (23:38)
[2021-06-15] VITALS: BP 140/65
[2021-06-15 06:00] VITALS: BP 172/77
[2021-06-15] MEDS: PIPERACILLIN/TAZOBACTAM 3.375 G in DEXTROSE 5% WATER 50 ML IV SCH ×3 (07:00→22:38)
[2021-06-15] MEDS: BLOOD SUGAR DIAGNOSTIC STRIP TEST SCH ×4 (07:00→21:00)
[2021-06-15] MEDS: INSULIN LISPRO 100 UNITS/ML SUBCUT SCH ×5 (07:10→22:40)
[2021-06-15 07:33] LABS: HEMATOCRIT. 33.8 % (42.0-52.0); HEMOGLOBIN. 11.1 g/dL (14.0-18.0); MEAN CORPUSCULAR HEMOGLOBIN 27.7 pg (28.0-32.0); MEAN CORPUSCULAR VOLUME 84.3 fL (80.0-94.0); MEAN PLATELET VOLUME 8.4 fl (7.4-10.4); PLATELET 385 x1000/uL (130-400); RED BLOOD CELL COUNT 4.01 mill/uL (4.7-6.1); RED CELL DISTRIBUTION WIDTH 14.3 % (11.6-14.6)
[2021-06-15 07:51] LABS: CHLORIDE 105 mEq/L (98-107)
[2021-06-15 08:02] LABS: PHOSPHORUS 2.3 mg/dL (2.5-4.9)
[2021-06-15] MEDS: MEGESTROL ACETATE 400 MG/10 ML UDC PO SCH (09:34)
[2021-06-15] MEDS: MAGNESIUM OXIDE 400MG TABLET PO SCH (09:34)
[2021-06-15] MEDS: TAMSULOSIN HCL 0.4MG SR CAPSULE PO SCH (09:34)
[2021-06-15] MEDS: FINASTERIDE 5MG TABLET PO SCH (09:34)
[2021-06-15] MEDS: POTASSIUM-SODIUM PHOSPHATE POWDER PACKET PO SCH ×2 (09:34→17:49)
[2021-06-15] MEDS: ASPIRIN 81MG EC TABLET PO SCH (09:34)
[2021-06-15] MEDS: ENOXAPARIN 40MG/0.4ML SYR SUBCUT SCH (09:34)
[2021-06-15] MEDS: AMLODIPINE 5MG TABLET PO SCH (09:35)
[2021-06-15] MEDS: INSULIN GLARGINE UD 100 UNITS/ML SYR SUBCUT SCH ×2 (09:35→22:40)
[2021-06-15] MEDS ORDERED: SODIUM PHOS,M-BASIC-D-BASIC 15 MM in DEXT 5% WATER 245 ML IV NR (11:00)
[2021-06-15 12:00] VITALS: BP 168/76
[2021-06-15] MEDS: CLONIDINE 0.1MG TABLET PO PRN (13:38)
[2021-06-15] MEDS ORDERED: HYDROCODONE/ACETAMINOPHEN 5/325MG TABLET PO PRN (14:45)
[2021-06-15] MEDS ORDERED: NALOXONE HCL 0.4MG/ML VIAL IV PRN (15:15)
[2021-06-15] MEDS: HYDROCODONE/ACETAMINOPHEN 10/325MG TABLET PO PRN (15:49)
[2021-06-15 16:00] VITALS: BP 128/63
[2021-06-15] MEDS: VANCOMYCIN 1 G PREMIX 200 ML IV SCH (17:56)
[2021-06-15 18:26] LABS: PLATELET ESTIMATE NORMAL
[2021-06-15 20:00] VITALS: BP 132/68
[2021-06-15] MEDS ORDERED: LACTULOSE 20G/30ML UDC PO PRN (20:30)
[2021-06-16] MEDS: HYDROCODONE/ACETAMINOPHEN 10/325MG TABLET PO PRN (01:25)
[2021-06-16 04:00] VITALS: BP 139/76
[2021-06-16] MEDS: PIPERACILLIN/TAZOBACTAM 3.375 G in DEXTROSE 5% WATER 50 ML IV SCH ×2 (05:57→14:16)
[2021-06-16] MEDS: BLOOD SUGAR DIAGNOSTIC STRIP TEST SCH ×4 (05:57→21:00)
[2021-06-16] MEDS: INSULIN LISPRO 100 UNITS/ML SUBCUT SCH ×4 (06:58→21:00)
[2021-06-16 08:00] VITALS: BP 181/86
[2021-06-16 08:59] LABS: BASOPHILS % 0.7 % (0.0-2.0); EOSINOPHILS % 4.8 % (0.0-5.0); HEMATOCRIT. 33.2 % (42.0-52.0); LYMPHOCYTES % 18.2 % (20.0-50.0); MEAN CORPUSCULAR HEMOGLOBIN 27.5 pg (28.0-32.0); MEAN CORPUSCULAR VOLUME 83.1 fL (80.0-94.0); MEAN PLATELET VOLUME 8.6 fl (7.4-10.4); MONOCYTES % 14.4 % (2.0-8.0); NEUTROPHILS % 61.9 % (40.0-76.0); PLATELET 415 x1000/uL (130-400); RED BLOOD CELL COUNT 3.99 mill/uL (4.7-6.1); RED CELL DISTRIBUTION WIDTH 14.4 % (11.6-14.6)
[2021-06-16] MEDS: TAMSULOSIN HCL 0.4MG SR CAPSULE PO SCH (09:00)
[2021-06-16] MEDS: FINASTERIDE 5MG TABLET PO SCH (09:00)
[2021-06-16] MEDS: POTASSIUM-SODIUM PHOSPHATE POWDER PACKET PO SCH ×2 (09:00→17:05)
[2021-06-16] MEDS: AMLODIPINE 5MG TABLET PO SCH (09:00)
[2021-06-16] MEDS: MAGNESIUM OXIDE 400MG TABLET PO SCH (09:00)
[2021-06-16] MEDS: MEGESTROL ACETATE 400 MG/10 ML UDC PO SCH (09:00)
[2021-06-16] MEDS: ASPIRIN 81MG EC TABLET PO SCH (09:00)
[2021-06-16] MEDS: ENOXAPARIN 40MG/0.4ML SYR SUBCUT SCH (09:00)
[2021-06-16 09:27] LABS: CHLORIDE 105 mEq/L (98-107)
[2021-06-16 09:38] LABS: PHOSPHORUS 2.3 mg/dL (2.5-4.9)
[2021-06-16] MEDS: INSULIN GLARGINE UD 100 UNITS/ML SYR SUBCUT SCH ×2 (10:39→22:00)
[2021-06-16 12:00] VITALS: BP 147/68
[2021-06-16] MEDS: VANCOMYCIN 1 G PREMIX 200 ML IV SCH (14:16)
[2021-06-16 16:00] VITALS: BP 133/60
[2021-06-16] MEDS: CLONIDINE 0.1MG TABLET PO SCH (17:05)
[2021-06-16 20:00] VITALS: BP 175/83
[2021-06-17] VITALS: BP 155/63
[2021-06-17] MEDS: PIPERACILLIN/TAZOBACTAM 3.375 G in DEXTROSE 5% WATER 50 ML IV SCH ×4 (00:03→22:42)
[2021-06-17] MEDS: CLONIDINE 0.1MG TABLET PO SCH ×4 (00:04→22:42)
[2021-06-17 04:00] VITALS: BP 176/79
[2021-06-17] MEDS: BLOOD SUGAR DIAGNOSTIC STRIP TEST SCH ×4 (06:40→21:06)
[2021-06-17] MEDS: INSULIN LISPRO 100 UNITS/ML SUBCUT SCH ×4 (06:42→21:00)
[2021-06-17 08:00] VITALS: BP 137/56
[2021-06-17 08:43] LABS: HEMATOCRIT. 32.7 % (42.0-52.0); MEAN CORPUSCULAR HEMOGLOBIN 27.8 pg (28.0-32.0); MEAN PLATELET VOLUME 8.2 fl (7.4-10.4); PLATELET 382 x1000/uL (130-400); RED BLOOD CELL COUNT 3.94 mill/uL (4.7-6.1); RED CELL DISTRIBUTION WIDTH 14.5 % (11.6-14.6)
[2021-06-17 08:51] LABS: CHLORIDE 104 mEq/L (98-107)
[2021-06-17] MEDS: POTASSIUM-SODIUM PHOSPHATE POWDER PACKET PO SCH ×2 (10:15→17:36)
[2021-06-17] MEDS: MEGESTROL ACETATE 400 MG/10 ML UDC PO SCH (10:15)
[2021-06-17] MEDS: ENOXAPARIN 40MG/0.4ML SYR SUBCUT SCH (10:15)
[2021-06-17] MEDS: FINASTERIDE 5MG TABLET PO SCH (10:16)
[2021-06-17] MEDS: ASPIRIN 81MG EC TABLET PO SCH (10:16)
[2021-06-17] MEDS: ACETAMINOPHEN 325MG TABLET PO PRN (10:16)
[2021-06-17] MEDS: MAGNESIUM OXIDE 400MG TABLET PO SCH (10:16)
[2021-06-17] MEDS: TAMSULOSIN HCL 0.4MG SR CAPSULE PO SCH (10:16)
[2021-06-17] MEDS: AMLODIPINE 5MG TABLET PO SCH (10:16)
[2021-06-17] MEDS: INSULIN GLARGINE UD 100 UNITS/ML SYR SUBCUT SCH ×2 (10:21→21:06)
[2021-06-17 12:00] VITALS: BP 142/75
[2021-06-17] MEDS: VANCOMYCIN 1 G PREMIX 200 ML IV SCH (15:29)
[2021-06-17 16:00] VITALS: BP 117/39
[2021-06-17 20:00] VITALS: BP 167/74
[2021-06-17 20:01] LABS: PLATELET ESTIMATE NORMAL
[2021-06-18] VITALS: BP 176/67
[2021-06-18 04:00] VITALS: BP 163/71
[2021-06-18] MEDS: BLOOD SUGAR DIAGNOSTIC STRIP TEST SCH ×4 (05:45→21:00)
[2021-06-18] MEDS: INSULIN LISPRO 100 UNITS/ML SUBCUT SCH ×4 (05:46→22:17)
[2021-06-18] MEDS: PIPERACILLIN/TAZOBACTAM 3.375 G in DEXTROSE 5% WATER 50 ML IV SCH ×3 (05:56→22:17)
[2021-06-18] MEDS: CLONIDINE 0.1MG TABLET PO SCH ×3 (05:57→22:23)
[2021-06-18 07:08] LABS: BASOPHILS % 0.7 % (0.0-2.0); EOSINOPHILS % 6.6 % (0.0-5.0); HEMATOCRIT. 32.9 % (42.0-52.0); HEMOGLOBIN. 10.9 g/dL (14.0-18.0); MEAN CORPUSCULAR HEMOGLOBIN 27.5 pg (28.0-32.0); MEAN CORPUSCULAR VOLUME 83.3 fL (80.0-94.0); MONOCYTES % 14.8 % (2.0-8.0); NEUTROPHILS % 57.9 % (40.0-76.0); PLATELET 369 x1000/uL (130-400); RED BLOOD CELL COUNT 3.95 mill/uL (4.7-6.1); RED CELL DISTRIBUTION WIDTH 14.4 % (11.6-14.6)
[2021-06-18 07:09] LABS: CHLORIDE 105 mEq/L (98-107)
[2021-06-18 08:00] VITALS: BP 174/78
[2021-06-18] MEDS: ENOXAPARIN 40MG/0.4ML SYR SUBCUT SCH (11:02)
[2021-06-18] MEDS: TAMSULOSIN HCL 0.4MG SR CAPSULE PO SCH (11:03)
[2021-06-18] MEDS: FINASTERIDE 5MG TABLET PO SCH (11:03)
[2021-06-18] MEDS: AMLODIPINE 5MG TABLET PO SCH (11:03)
[2021-06-18] MEDS: MEGESTROL ACETATE 400 MG/10 ML UDC PO SCH (11:03)
[2021-06-18] MEDS: ASPIRIN 81MG EC TABLET PO SCH (11:03)
[2021-06-18] MEDS: MAGNESIUM OXIDE 400MG TABLET PO SCH (11:03)
[2021-06-18] MEDS: POTASSIUM-SODIUM PHOSPHATE POWDER PACKET PO SCH ×2 (11:03→17:03)
[2021-06-18] MEDS: INSULIN GLARGINE UD 100 UNITS/ML SYR SUBCUT SCH ×2 (11:04→22:15)
[2021-06-18 12:00] VITALS: BP 170/68
[2021-06-18] MEDS: VANCOMYCIN 1 G PREMIX 200 ML IV SCH (14:44)
[2021-06-18 16:00] VITALS: BP_SYST 164; BP_SYST 173; BP_DIAS 63
[2021-06-18] MEDS: CLONIDINE 0.1MG TABLET PO PRN (17:03)
[2021-06-18] MEDS: HYDROCODONE/ACETAMINOPHEN 10/325MG TABLET PO PRN (19:59)
[2021-06-18 20:00] VITALS: BP 184/84
[2021-06-19] VITALS: BP 141/60
[2021-06-19 04:00] VITALS: BP 158/56
[2021-06-19] MEDS: PIPERACILLIN/TAZOBACTAM 3.375 G in DEXTROSE 5% WATER 50 ML IV SCH ×2 (05:59→15:31)
[2021-06-19] MEDS: CLONIDINE 0.1MG TABLET PO SCH ×3 (06:00→21:59)
[2021-06-19] MEDS: INSULIN LISPRO 100 UNITS/ML SUBCUT SCH ×4 (07:10→21:54)
[2021-06-19] MEDS: BLOOD SUGAR DIAGNOSTIC STRIP TEST SCH ×4 (07:26→21:55)
[2021-06-19 08:00] VITALS: BP 143/55
[2021-06-19 08:59] LABS: BASOPHILS % 1.1 % (0.0-2.0); EOSINOPHILS % 6.7 % (0.0-5.0); HEMATOCRIT. 33.5 % (42.0-52.0); HEMOGLOBIN. 10.7 g/dL (14.0-18.0); LYMPHOCYTES % 17.4 % (20.0-50.0); MEAN CORPUSCULAR HEMOGLOBIN 26.9 pg (28.0-32.0); MEAN PLATELET VOLUME 8.2 fl (7.4-10.4); MONOCYTES % 11.8 % (2.0-8.0); PLATELET 399 x1000/uL (130-400); RED BLOOD CELL COUNT 3.99 mill/uL (4.7-6.1); RED CELL DISTRIBUTION WIDTH 14.6 % (11.6-14.6)
[2021-06-19] MEDS: MEGESTROL ACETATE 400 MG/10 ML UDC PO SCH (10:13)
[2021-06-19] MEDS: TAMSULOSIN HCL 0.4MG SR CAPSULE PO SCH (10:13)
[2021-06-19] MEDS: FINASTERIDE 5MG TABLET PO SCH (10:13)
[2021-06-19] MEDS: ASPIRIN 81MG EC TABLET PO SCH (10:13)
[2021-06-19] MEDS: POTASSIUM-SODIUM PHOSPHATE POWDER PACKET PO SCH ×2 (10:13→16:39)
[2021-06-19] MEDS: MAGNESIUM OXIDE 400MG TABLET PO SCH (10:14)
[2021-06-19] MEDS: AMLODIPINE 10MG TABLET PO SCH (10:14)
[2021-06-19] MEDS: ENOXAPARIN 40MG/0.4ML SYR SUBCUT SCH (10:14)
[2021-06-19] MEDS: INSULIN GLARGINE UD 100 UNITS/ML SYR SUBCUT SCH ×2 (10:15→21:57)
[2021-06-19 12:00] VITALS: BP 159/64
[2021-06-19] MEDS: VANCOMYCIN 1 G PREMIX 200 ML IV SCH (15:31)
[2021-06-19 16:00] VITALS: BP 154/62
[2021-06-20] VITALS: BP_SYST 139; BP_SYST 168; BP_DIAS 76; BP_DIAS 85
[2021-06-20] MEDS: PIPERACILLIN/TAZOBACTAM 3.375 G in DEXTROSE 5% WATER 50 ML IV SCH ×2 (00:28→13:23)
[2021-06-20 04:00] VITALS: BP 168/85
[2021-06-20] MEDS: CLONIDINE 0.1MG TABLET PO SCH ×2 (05:46→13:23)
[2021-06-20] MEDS: BLOOD SUGAR DIAGNOSTIC STRIP TEST SCH ×2 (06:40→11:53)
[2021-06-20] MEDS: INSULIN LISPRO 100 UNITS/ML SUBCUT SCH ×2 (07:10→11:53)
[2021-06-20 07:59] LABS: BASOPHILS % 0.9 % (0.0-2.0); EOSINOPHILS % 5.5 % (0.0-5.0); HEMATOCRIT. 33.6 % (42.0-52.0); LYMPHOCYTES % 14.2 % (20.0-50.0); MEAN CORPUSCULAR HEMOGLOBIN 27.4 pg (28.0-32.0); MEAN CORPUSCULAR VOLUME 83.4 fL (80.0-94.0); NEUTROPHILS % 67.4 % (40.0-76.0); PLATELET 385 x1000/uL (130-400); RED BLOOD CELL COUNT 4.03 mill/uL (4.7-6.1); RED CELL DISTRIBUTION WIDTH 14.5 % (11.6-14.6)
[2021-06-20 08:00] VITALS: BP 157/69
[2021-06-20] MEDS: MEGESTROL ACETATE 400 MG/10 ML UDC PO SCH (08:46)
[2021-06-20] MEDS: FINASTERIDE 5MG TABLET PO SCH (08:46)
[2021-06-20] MEDS: TAMSULOSIN HCL 0.4MG SR CAPSULE PO SCH (08:46)
[2021-06-20] MEDS: POTASSIUM-SODIUM PHOSPHATE POWDER PACKET PO SCH (08:46)
[2021-06-20] MEDS: MAGNESIUM OXIDE 400MG TABLET PO SCH (08:47)
[2021-06-20] MEDS: ENOXAPARIN 40MG/0.4ML SYR SUBCUT SCH (08:47)
[2021-06-20] MEDS: ASPIRIN 81MG EC TABLET PO SCH (08:47)
[2021-06-20] MEDS: AMLODIPINE 10MG TABLET PO SCH (08:47)
[2021-06-20] MEDS: INSULIN GLARGINE UD 100 UNITS/ML SYR SUBCUT SCH (09:04)
[2021-06-20 12:27] VITALS: BP 150/63
[2021-06-20 13:07] VITALS: BP 150/63
[2021-06-20] MEDS ORDERED: SODIUM CHLORIDE 0.45% 1,000 ML IV SCH (14:45)
== END 2021-06-20 14:30 | DRG 344 ==
LOC: ER 16:32 → 6EST 06-01 00:39 → EDBEDREQSVC 06-01 07:20 → ENRESERV 06-01 08:47 → ER 06-01 10:12 → 3WST 06-03 13:54 → 7EST 06-07 14:13
PROVIDERS: ADMIT Internal Medicine; ATTEND Internal Medicine
PROC: B41G1ZZ Fluoroscopy of Left Lower Extremity Arteries using Low Osmolar Contrast (ICD-10-PCS; principal; 2021-06-03)
PROC: B41F1ZZ Fluoroscopy of Right Lower Extremity Arteries using Low Osmolar Contrast (ICD-10-PCS; 2021-06-03)
DX: E11.69 Type 2 diabetes mellitus with other specified complication (principal); M86.8X7 Other osteomyelitis, ankle and foot; A41.89 Other specified sepsis; U07.1 COVID-19; E11.52 Type 2 diabetes mellitus with diabetic peripheral angiopathy with gangrene; E46 Unspecified protein-calorie malnutrition; I96 Gangrene, not elsewhere classified; N17.9 Acute kidney failure, unspecified; E11.22 Type 2 diabetes mellitus with diabetic chronic kidney disease; I70.92 Chronic total occlusion of artery of the extremities; E88.09 Other disorders of plasma-protein metabolism, not elsewhere classified; N39.0 Urinary tract infection, site not specified; B96.89 Other specified bacterial agents as the cause of diseases classified elsewhere; D64.9 Anemia, unspecified; E78.00 Pure hypercholesterolemia, unspecified; E78.5 Hyperlipidemia, unspecified; F41.9 Anxiety disorder, unspecified; I25.10 Atherosclerotic heart disease of native coronary artery without angina pectoris; N18.9 Chronic kidney disease, unspecified; N28.1 Cyst of kidney, acquired; I12.9 Hypertensive chronic kidney disease with stage 1 through stage 4 chronic kidney disease, or unspecified chronic kidney disease; N32.0 Bladder-neck obstruction; N40.0 Benign prostatic hyperplasia without lower urinary tract symptoms; E83.42 Hypomagnesemia; E86.0 Dehydration; I35.0 Nonrheumatic aortic (valve) stenosis; I44.0 Atrioventricular block, first degree; I25.2 Old myocardial infarction; Z79.4 Long term (current) use of insulin; Z79.82 Long term (current) use of aspirin; Z82.49 Family history of ischemic heart disease and other diseases of the circulatory system; Z83.3 Family history of diabetes mellitus; Z86.73 Personal history of transient ischemic attack (TIA), and cerebral infarction without residual deficits; Z68.29 Body mass index [BMI] 29.0-29.9, adult; Z79.899 Other long term (current) drug therapy; K40.20 Bilateral inguinal hernia, without obstruction or gangrene, not specified as recurrent
CPT/HCPCS: 36245; 36415; 71045; 73630; 74176; 75710; 76770; 80048; 80053; 80061; 80202; 81003; 82728; 82784; 82962; 83036; 83615; 83735; 84100; 84145; 84155; 84165; 85025; 85347; 85651; 86140; 86334; 87077; 87186; 87426; 87635; 93005; 93306; 93923; 97110; 97162; 97166; 97530; 97535; 99285; A9577; C1725; C1760; C1769; C1893; C8914; C8920; J1644; J1650; J1815; J1885; J2250; J2543; J3010; J3370; J3475; J3490; J7030; J7040; J7060; Q9967

== ENCOUNTER 2021-06-27 21:25 | Inpatient (IN) | payer MEDICARE, MEDICAID ==
[~2021-06-27] VITALS: Ht 182.9 cm; Wt 81.6 kg
[~2021-06-27 21:25] MED LIST: AMLO5TAB88 PO; ASPI-1406 PO; BLOO-1465 MT; FINA5TAB11 PO; INSLIS SUBCUT; LANTUSUD SUBCUT; LEVO750T46 MT; MAGN400T26 MT; MEGE400O4 PO; NAPH1POW3 PO; SULF1TAB48 MT; TAMS-11 PO; [UNRECOGNIZED DRUG - CODE] MC
[2021-06-27] MEDS ORDERED: PANTOPRAZOLE SODIUM 40 MG/VIAL IV STA (22:37)
[2021-06-27] MEDS ORDERED: ONDANSETRON HCL 4MG/2ML INJ IV STA (22:37)
[2021-06-27] MEDS ORDERED: PIPERACILLIN/TAZ 3.375G PREMIX 50 ML IV ONE (22:45)
[2021-06-27] MEDS ORDERED: SODIUM CHLORIDE 0.9% 1000ML BAG (SEPSIS BOLUS) IV ONE (22:45)
[2021-06-27] MEDS ORDERED: VANCOMYCIN 1G PREMIX 200 ML IV ONE (22:45)
[2021-06-27 23:03] LABS: BG BASE EXCESS 0.6 mmol/L (-2.0-2.0); BG CARBOXYHEMOGLOBIN 0.7 % (0.5-1.5); BG DEOXYHEMOGLOBIN 1.7 % (0.0-5.0); BG FRACTION INSPIRED OXYGEN 55; BG HCO3 ACT 24.2 mmol/L (22.0-26.0); BG METHEMOGLOBIN 0.3 % (0.0-1.5); BG OXYGEN SATURATION 98.3 % (92.0-98.5); BG OXYHEMOGLOBIN 97.3 % (94.0-97.0); BG PCO2 35.8 mmHg (35.0-45.0); BG PH 7.448 (7.350-7.450); BG PO2 113.2 mmHg (75.0-100.0); BG SAMPLE SITE RIGHT RADIAL; BG TOTAL HEMOGLOBIN 14.6 g/dL (12.0-18.0); BG VENT MODE MASK - SIMPLE
[2021-06-27] MEDS ORDERED: VECURONIUM BROMIDE 10 MG/VIAL IV ONE (23:15)
[2021-06-27] MEDS ORDERED: MIDAZOLAM HCL 50 MG in DEXTROSE 5% WATER 40 ML IV ONE (23:15)
[2021-06-27] MEDS ORDERED: MIDAZOLAM HCL 2 MG/2 ML VIAL IV ONE (23:15)
[2021-06-28] MEDS: MIDAZOLAM HCL 100 MG in SODIUM CHLORIDE 0.9% 100 ML IV PRN ×2 (00:10→18:43)
[2021-06-28 00:38] LABS: BG BASE EXCESS 0.6 mmol/L (-2.0-2.0); BG CARBOXYHEMOGLOBIN 0.6 % (0.5-1.5); BG DEOXYHEMOGLOBIN 4.8 % (0.0-5.0); BG FRACTION INSPIRED OXYGEN 50; BG HCO3 ACT 25.1 mmol/L (22.0-26.0); BG METHEMOGLOBIN 0.2 % (0.0-1.5); BG OXYGEN SATURATION 95.2 % (92.0-98.5); BG OXYHEMOGLOBIN 94.4 % (94.0-97.0); BG PCO2 39.9 mmHg (35.0-45.0); BG PH 7.416 (7.350-7.450); BG PO2 78.8 mmHg (75.0-100.0); BG SAMPLE SITE RIGHT RADIAL; BG TOTAL HEMOGLOBIN 13.7 g/dL (12.0-18.0); BG VENT MODE VENT - AC
[2021-06-28 01:51] LABS: HEMATOCRIT. 42.1 % (42.0-52.0); HEMOGLOBIN. 12.7 g/dL (14.0-18.0); MEAN CORPUSCULAR HEMOGLOBIN 26.8 pg (28.0-32.0); MEAN CORPUSCULAR VOLUME 88.5 fL (80.0-94.0); MEAN PLATELET VOLUME 8.9 fl (7.4-10.4); PLATELET 284 x1000/uL (130-400); RED BLOOD CELL COUNT 4.75 mill/uL (4.7-6.1); RED CELL DISTRIBUTION WIDTH 15.8 % (11.6-14.6)
[2021-06-28 01:58] LABS: CHLORIDE 109 mEq/L (98-107)
[2021-06-28 02:00] LABS: INR 1.2; PROTHROMBIN TIME 12.8 sec (9.6-11.0)
[2021-06-28] MEDS ORDERED: PANTOPRAZOLE SODIUM 40 MG/VIAL IV STA (02:19)
[2021-06-28] MEDS ORDERED: PANTOPRAZOLE SODIUM 40 MG/VIAL IV SCH (02:30)
[2021-06-28 04:47] LABS: PLATELET ESTIMATE NORMAL
[2021-06-28] MEDS ORDERED: DEXTROSE 50% WATER 50ML SYRINGE IV PRN (07:30)
[2021-06-28] MEDS ORDERED: DOCUSATE SODIUM 100MG CAPSULE PO PRN (07:30)
[2021-06-28] MEDS ORDERED: ACETAMINOPHEN 650MG SUPP PR PRN ×2 (07:30)
[2021-06-28] MEDS ORDERED: ONDANSETRON HCL 4MG/2ML INJ IV PRN (07:30)
[2021-06-28] MEDS ORDERED: IPRATROPIUM/ALBUTEROL 0.5-3(2.5)MG/3ML NEB NEB PRN (07:30)
[2021-06-28] MEDS ORDERED: NITROGLYCERIN 0.4MG TABLET SL SL PRN (07:30)
[2021-06-28] MEDS: IPRATROPIUM/ALBUTEROL 0.5-3(2.5)MG/3ML NEB HHN SCH ×4 (08:35→20:51)
[2021-06-28] MEDS: DEXT 5%/0.45% NACL 1000ML 1,000 ML IV SCH ×3 (08:45→19:15)
[2021-06-28] MEDS ORDERED: METOPROLOL TARTRATE 25MG TABLET PO SCH (09:00)
[2021-06-28] MEDS ORDERED: VANCOMYCIN 1G PREMIX 200 ML IV NR (09:00)
[2021-06-28] MEDS: PANTOPRAZOLE 80 MG in SODIUM CHLORIDE 0.9% 100 ML IV SCH ×2 (09:29→18:30)
[2021-06-28] MEDS: METOPROLOL TARTRATE 50MG TABLET PO SCH ×2 (09:29→21:00)
[2021-06-28 09:53] LABS: BG BASE EXCESS -5.8 mmol/L (-2.0-2.0); BG CARBOXYHEMOGLOBIN 0.3 % (0.5-1.5); BG HCO3 ACT 18.3 mmol/L (22.0-26.0); BG METHEMOGLOBIN 0.2 % (0.0-1.5); BG OXYHEMOGLOBIN 94.5 % (94.0-97.0); BG PCO2 31.3 mmHg (35.0-45.0); BG PH 7.384 (7.350-7.450); BG PO2 81.8 mmHg (75.0-100.0); BG SAMPLE SITE LEFT RADIAL; BG TOTAL HEMOGLOBIN 12.1 g/dL (12.0-18.0); BG VENT MODE VENT - AC
[2021-06-28] MEDS ORDERED: INSULIN GLARGINE UD 100 UNITS/ML SYR SUBCUT SCH (10:00)
[2021-06-28 10:57] LABS: FOLIC ACID (FOLATE) SERUM 4.5 ng/mL (>5.38)
[2021-06-28 11:08] LABS: *AMPHETAMINES SCREEN URINE NEGATIVE (NEGATIVE)
[2021-06-28 11:09] LABS: *BARBITURATES SCREEN URINE NEGATIVE (NEGATIVE); *BENZODIAZEPINES SCREEN URINE NEGATIVE (NEGATIVE); *COCAINE SCREEN URINE NEGATIVE (NEGATIVE); METHADONE URINE SCREEN NEGATIVE (NEGATIVE); OPIATES URINE SCREEN NEGATIVE (NEGATIVE); PHENCYCLIDINE URINE SCREEN NEGATIVE (NEGATIVE)
[2021-06-28 11:10] LABS: CANNABINOID URINE SCREEN NEGATIVE (NEGATIVE)
[2021-06-28] MEDS: PIPERACILLIN/TAZ 3.375G PREMIX 50 ML IV SCH ×2 (11:15→21:48)
[2021-06-28] MEDS: BLOOD SUGAR DIAGNOSTIC STRIP TEST SCH ×3 (12:03→21:48)
[2021-06-28] MEDS: INSULIN LISPRO 100 UNITS/ML SUBCUT SCH ×3 (12:34→22:05)
[2021-06-28] MEDS ORDERED: BISACODYL 10MG SUPP PR NR (14:45)
[2021-06-28] MEDS ORDERED: INSULIN LISPRO 100 UNITS/ML SUBCUT ONE ×2 (17:45→18:00)
[2021-06-28] MEDS: PANTOPRAZOLE SODIUM 40 MG/VIAL IV SCH (19:08)
[2021-06-29] VITALS (30 sets, daily range): BP systolic 118–183; BP diastolic 48–93
[2021-06-29] MEDS: IPRATROPIUM/ALBUTEROL 0.5-3(2.5)MG/3ML NEB HHN SCH ×6 (00:38→20:16)
[2021-06-29] MEDS: BLOOD SUGAR DIAGNOSTIC STRIP TEST SCH ×4 (11:30→21:00)
[2021-06-29] MEDS ORDERED: MIDAZOLAM 100MG/100ML PMX 100 ML IV PRN (11:45)
[2021-06-29] MEDS ORDERED: MIDAZOLAM HCL 100 MG in SODIUM CHLORIDE 0.9% 100 ML IV PRN (12:00)
[2021-06-29] MEDS: INSULIN LISPRO 100 UNITS/ML SUBCUT SCH ×4 (12:00→22:17)
[2021-06-29] MEDS: PANTOPRAZOLE SODIUM 40 MG/VIAL IV SCH ×2 (12:28→17:50)
[2021-06-29] MEDS: METOPROLOL TARTRATE 50MG TABLET PO SCH (12:28)
[2021-06-29] MEDS: FOLIC ACID 1MG TABLET NG SCH (12:28)
[2021-06-29] MEDS: INSULIN GLARGINE UD 100 UNITS/ML SYR SUBCUT SCH (13:57)
[2021-06-29] MEDS: DEXT 5%/0.45% NACL 1000ML 1,000 ML IV SCH (13:58)
[2021-06-29 14:30] LABS: HEMATOCRIT. 34.8 % (42.0-52.0); MEAN CORPUSCULAR HEMOGLOBIN 26.8 pg (28.0-32.0); MEAN CORPUSCULAR VOLUME 84.9 fL (80.0-94.0); PLATELET 227 x1000/uL (130-400); RED CELL DISTRIBUTION WIDTH 15.5 % (11.6-14.6)
[2021-06-29 14:35] LABS: CHLORIDE 117 mEq/L (98-107)
[2021-06-29 14:43] LABS: PHOSPHORUS 2.7 mg/dL (2.5-4.9)
[2021-06-29] MEDS ORDERED: PIPERACILLIN/TAZ 3.375G PREMIX 50 ML IV SCH (15:30)
[2021-06-29 15:49] LABS: PLATELET ESTIMATE NORMAL
[2021-06-29] MEDS: HYDRALAZINE 20MG/ML VIAL IV SCH ×2 (16:07→22:04)
[2021-06-29] MEDS: PIPERACILLIN/TAZOBACTAM 3.375 G in DEXTROSE 5% WATER 50 ML IV SCH (16:07)
[2021-06-29] MEDS ORDERED: VANCOMYCIN 750 MG in DEXT 5% WATER 250 ML IV NR (18:00)
[2021-06-30] VITALS (48 sets, daily range): BP systolic 95–133; BP diastolic 47–86
[2021-06-30] MEDS: PIPERACILLIN/TAZOBACTAM 3.375 G in DEXTROSE 5% WATER 50 ML IV SCH ×3 (00:02→20:50)
[2021-06-30] MEDS: IPRATROPIUM/ALBUTEROL 0.5-3(2.5)MG/3ML NEB HHN SCH ×6 (00:03→15:52)
[2021-06-30] MEDS: DEXT 5%/0.45% NACL 1000ML 1,000 ML IV SCH ×3 (00:03→19:52)
[2021-06-30] MEDS: HYDRALAZINE 20MG/ML VIAL IV SCH ×3 (06:00→20:50)
[2021-06-30] MEDS: PANTOPRAZOLE SODIUM 40 MG/VIAL IV SCH ×2 (06:40→17:33)
[2021-06-30] MEDS: BLOOD SUGAR DIAGNOSTIC STRIP TEST SCH ×4 (06:56→20:50)
[2021-06-30] MEDS: INSULIN LISPRO 100 UNITS/ML SUBCUT SCH ×4 (06:59→20:59)
[2021-06-30] MEDS: FOLIC ACID 1MG TABLET NG SCH (08:13)
[2021-06-30 08:15] LABS: BG CARBOXYHEMOGLOBIN 0.3 % (0.5-1.5); BG DEOXYHEMOGLOBIN 6.4 % (0.0-5.0); BG FRACTION INSPIRED OXYGEN 40; BG HCO3 ACT 18.9 mmol/L (22.0-26.0); BG METHEMOGLOBIN 0.3 % (0.0-1.5); BG OXYGEN SATURATION 93.6 % (92.0-98.5); BG PCO2 30.8 mmHg (35.0-45.0); BG PEEP (cmH2O) 0 cmH2O; BG PH 7.405 (7.350-7.450); BG PO2 70.4 mmHg (75.0-100.0); BG SAMPLE SITE RIGHT RADIAL; BG TOTAL HEMOGLOBIN 10.3 g/dL (12.0-18.0); BG VENT MODE VENT - AC/VC
[2021-06-30 08:26] LABS: HEMATOCRIT. 30.5 % (42.0-52.0); HEMOGLOBIN. 9.8 g/dL (14.0-18.0); MEAN CORPUSCULAR HEMOGLOBIN 27.2 pg (28.0-32.0); MEAN CORPUSCULAR VOLUME 84.9 fL (80.0-94.0); MEAN PLATELET VOLUME 9.4 fl (7.4-10.4); PLATELET 200 x1000/uL (130-400); RED BLOOD CELL COUNT 3.59 mill/uL (4.7-6.1); RED CELL DISTRIBUTION WIDTH 15.6 % (11.6-14.6)
[2021-06-30 09:36] LABS: NUCLEATED RED BLOOD CELLS 2 /100 WBC
[2021-06-30 09:38] LABS: PLATELET ESTIMATE NORMAL
[2021-06-30] MEDS: INSULIN GLARGINE UD 100 UNITS/ML SYR SUBCUT SCH ×2 (10:35→22:30)
[2021-06-30] MEDS ORDERED: SORBITOL 70% SOLN 30ML PO NR (13:15)
[2021-06-30] MEDS: FENTANYL CITRATE/PF 2,500 MCG in SODIUM CHLORIDE 0.9% 200 ML IV PRN (13:25)
[2021-06-30] MEDS: BISACODYL 10MG SUPP PR SCH (13:52)
[2021-06-30] MEDS: METOCLOPRAMIDE HCL 10MG/2ML VIAL IV SCH ×2 (13:52→17:33)
[2021-06-30] MEDS ORDERED: VANCOMYCIN 750 MG in DEXT 5% WATER 250 ML IV NR (20:00)
[2021-07-01] VITALS (48 sets, daily range): BP systolic 93–150; BP diastolic 47–84
[2021-07-01] MEDS: IPRATROPIUM/ALBUTEROL 0.5-3(2.5)MG/3ML NEB HHN SCH ×6 (00:07→21:23)
[2021-07-01] MEDS: ACETYLCYSTEINE 100MG/ML 10% VIAL 4ML INH SCH ×2 (00:55→16:16)
[2021-07-01] MEDS: METOCLOPRAMIDE HCL 10MG/2ML VIAL IV SCH ×5 (01:03→23:42)
[2021-07-01] MEDS: HYDRALAZINE 20MG/ML VIAL IV SCH ×3 (06:06→21:30)
[2021-07-01] MEDS: DEXT 5%/0.45% NACL 1000ML 1,000 ML IV SCH ×2 (06:06→08:07)
[2021-07-01] MEDS: PANTOPRAZOLE SODIUM 40 MG/VIAL IV SCH ×2 (06:06→17:46)
[2021-07-01] MEDS: FENTANYL CITRATE/PF 2,500 MCG in SODIUM CHLORIDE 0.9% 200 ML IV PRN (06:15)
[2021-07-01 07:55] LABS: HEMATOCRIT. 27.4 % (42.0-52.0); HEMOGLOBIN. 8.8 g/dL (14.0-18.0); MEAN CORPUSCULAR HEMOGLOBIN 27.1 pg (28.0-32.0); MEAN CORPUSCULAR VOLUME 84.2 fL (80.0-94.0); MEAN PLATELET VOLUME 9.6 fl (7.4-10.4); PLATELET 140 x1000/uL (130-400); RED BLOOD CELL COUNT 3.26 mill/uL (4.7-6.1); RED CELL DISTRIBUTION WIDTH 15.7 % (11.6-14.6)
[2021-07-01] MEDS: PIPERACILLIN/TAZOBACTAM 3.375 G in DEXTROSE 5% WATER 50 ML IV SCH ×2 (08:06→21:30)
[2021-07-01] MEDS: BLOOD SUGAR DIAGNOSTIC STRIP TEST SCH ×4 (08:06→21:30)
[2021-07-01] MEDS: INSULIN LISPRO 100 UNITS/ML SUBCUT SCH ×4 (08:07→21:30)
[2021-07-01] MEDS: FOLIC ACID 1MG TABLET NG SCH (08:07)
[2021-07-01] MEDS: BISACODYL 10MG SUPP PR SCH (08:07)
[2021-07-01 08:37] LABS: BG BASE EXCESS -5.2 mmol/L (-2.0-2.0); BG CARBOXYHEMOGLOBIN 0.3 % (0.5-1.5); BG DEOXYHEMOGLOBIN 1.1 % (0.0-5.0); BG FRACTION INSPIRED OXYGEN 45; BG HCO3 ACT 18.4 mmol/L (22.0-26.0); BG METHEMOGLOBIN 0.3 % (0.0-1.5); BG OXYGEN SATURATION 98.9 % (92.0-98.5); BG OXYHEMOGLOBIN 98.3 % (94.0-97.0); BG PCO2 29.3 mmHg (35.0-45.0); BG PEEP (cmH2O) 0 cmH2O; BG PH 7.415 (7.350-7.450); BG PO2 148.5 mmHg (75.0-100.0); BG SAMPLE SITE RIGHT RADIAL; BG VENT MODE VENT - AC/VC
[2021-07-01 08:55] LABS: PLATELET ESTIMATE NORMAL
[2021-07-01] MEDS: INSULIN GLARGINE UD 100 UNITS/ML SYR SUBCUT SCH ×2 (10:00→21:36)
[2021-07-01] MEDS: SODIUM CHLORIDE 0.45% 1,000 ML IV SCH ×2 (13:21→21:43)
[2021-07-01 13:25] LABS: CLARITY URINE CLOUDY (CLEAR); COLOR URINE DARK YELLOW (YELLOW); KETONES URINE NEGATIVE (NEGATIVE); LEUKOCYTE ESTERASE URINE TRACE (NEGATIVE); NITRITE URINE NEGATIVE (NEGATIVE); OCCULT BLOOD URINE 2+ (NEGATIVE); PROTEIN URINE 1+ (NEGATIVE)
[2021-07-02] VITALS (44 sets, daily range): BP systolic 48–153; BP diastolic 20–109
[2021-07-02] MEDS: IPRATROPIUM/ALBUTEROL 0.5-3(2.5)MG/3ML NEB HHN SCH ×5 (00:55→15:53)
[2021-07-02] MEDS: METOCLOPRAMIDE HCL 10MG/2ML VIAL IV SCH (06:04)
[2021-07-02] MEDS: PANTOPRAZOLE SODIUM 40 MG/VIAL IV SCH (06:04)
[2021-07-02] MEDS: HYDRALAZINE 20MG/ML VIAL IV SCH ×2 (06:04→14:00)
[2021-07-02 06:14] LABS: HEMATOCRIT. 31.1 % (42.0-52.0); HEMOGLOBIN. 9.8 g/dL (14.0-18.0); MEAN CORPUSCULAR HEMOGLOBIN 26.3 pg (28.0-32.0); MEAN CORPUSCULAR VOLUME 83.6 fL (80.0-94.0); MEAN PLATELET VOLUME 9.7 fl (7.4-10.4); PLATELET 135 x1000/uL (130-400); RED BLOOD CELL COUNT 3.72 mill/uL (4.7-6.1)
[2021-07-02 06:26] LABS: PHOSPHORUS 2.9 mg/dL (2.5-4.9)
[2021-07-02] MEDS: BLOOD SUGAR DIAGNOSTIC STRIP TEST SCH ×2 (08:12→13:42)
[2021-07-02] MEDS: SODIUM CHLORIDE 0.45% 1,000 ML IV SCH (08:51)
[2021-07-02] MEDS: ACETYLCYSTEINE 100MG/ML 10% VIAL 4ML INH SCH ×2 (08:52→15:53)
[2021-07-02] MEDS: BISACODYL 10MG SUPP PR SCH (08:58)
[2021-07-02] MEDS: PIPERACILLIN/TAZOBACTAM 3.375 G in DEXTROSE 5% WATER 50 ML IV SCH (08:58)
[2021-07-02] MEDS: FOLIC ACID 1MG TABLET NG SCH (08:58)
[2021-07-02 09:00] LABS: BG BASE EXCESS -6.1 mmol/L (-2.0-2.0); BG CARBOXYHEMOGLOBIN 0.6 % (0.5-1.5); BG DEOXYHEMOGLOBIN 8.5 % (0.0-5.0); BG FRACTION INSPIRED OXYGEN 40; BG HCO3 ACT 18.4 mmol/L (22.0-26.0); BG METHEMOGLOBIN 0.4 % (0.0-1.5); BG OXYGEN SATURATION 91.4 % (92.0-98.5); BG OXYHEMOGLOBIN 90.5 % (94.0-97.0); BG PCO2 32.6 mmHg (35.0-45.0); BG PH 7.369 (7.350-7.450); BG PO2 64.4 mmHg (75.0-100.0); BG SAMPLE SITE LEFT RADIAL; BG TOTAL HEMOGLOBIN 9.9 g/dL (12.0-18.0); BG TOTAL RESPIRATORY RATE 41 b/min; BG VENT MODE VENT - AC
[2021-07-02] MEDS ORDERED: NYSTATIN POWDER 15GM TOP SCH (09:00)
[2021-07-02] MEDS: INSULIN LISPRO 100 UNITS/ML SUBCUT SCH ×2 (09:00→13:20)
[2021-07-02] MEDS ORDERED: CALCIUM CHLORIDE 1GM/10ML SYR IV ONE (09:07)
[2021-07-02] MEDS ORDERED: AMIODARONE HCL 50MG/ML 3ML VIAL IV ONE (09:07)
[2021-07-02] MEDS ORDERED: ATROPINE SULFATE 1MG/10ML SYR ONE (09:07)
[2021-07-02] MEDS ORDERED: SODIUM BICARBONATE 8.4% 1 MEQ/ML 50ML SYR IV ONE (09:07)
[2021-07-02 09:34] LABS: NUCLEATED RED BLOOD CELLS 1 /100 WBC; PLATELET ESTIMATE NORMAL
[2021-07-02] MEDS: INSULIN GLARGINE UD 100 UNITS/ML SYR SUBCUT SCH (10:36)
[2021-07-02] MEDS ORDERED: NOREPINEPHRINE 8MG/250ML PMX 250 ML IV PRN (16:30)
[2021-07-02 16:45] LABS: BG BASE EXCESS -11.4 mmol/L (-2.0-2.0); BG CARBOXYHEMOGLOBIN 0.3 % (0.5-1.5); BG HCO3 ACT 15.3 mmol/L (22.0-26.0); BG METHEMOGLOBIN 0.4 % (0.0-1.5); BG OXYGEN SATURATION 78.9 % (92.0-98.5); BG OXYHEMOGLOBIN 78.3 % (94.0-97.0); BG PCO2 37.2 mmHg (35.0-45.0); BG PH 7.231 (7.350-7.450); BG PO2 52.3 mmHg (75.0-100.0); BG SAMPLE SITE RIGHT RADIAL; BG TOTAL HEMOGLOBIN 10.2 g/dL (12.0-18.0); BG VENT MODE VENT - AC
[2021-07-02] MEDS ORDERED: PHENYLEPHRINE 100 MG in DEXT 5% WATER 240 ML IV PRN (16:45)
[2021-07-02] MEDS ORDERED: VASOPRESSIN 20 UNIT in SODIUM CHLORIDE 0.9% 99 ML IV PRN (16:45)
[2021-07-02] MEDS ORDERED: NOREPINEPHRINE 8 MG in DEXTROSE 5% WATER 250 ML IV PRN (16:45)
[2021-07-02] MEDS ORDERED: SODIUM BICARBONATE 150 MEQ in DEXTROSE 5% WATER 1,000 ML IV SCH (17:00)
[2021-07-02] MEDS ORDERED: SODIUM BICARBONATE 8.4% 1 MEQ/ML 50ML SYR IV NR (17:00)
== END 2021-07-02 19:31 | DRG 720 ==
LOC: ER 21:25 → MICUSO 06-28 03:12 → EDBEDREQ 06-28 03:31 → EDBEDREQTM 06-28 03:31 → CVICU 06-29 12:16
PROVIDERS: ADMIT Internal Medicine; ATTEND Internal Medicine
PROC: 02HV33Z Insertion of Infusion Device into Superior Vena Cava, Percutaneous Approach (ICD-10-PCS; principal; 2021-06-27)
PROC: 5A1955Z Respiratory Ventilation, Greater than 96 Consecutive Hours (ICD-10-PCS; 2021-06-27)
PROC: B548ZZA Ultrasonography of Superior Vena Cava, Guidance (ICD-10-PCS; 2021-06-27)
PROC: 0BH17EZ Insertion of Endotracheal Airway into Trachea, Via Natural or Artificial Opening (ICD-10-PCS; 2021-06-27)
PROC: 5A12012 Performance of Cardiac Output, Single, Manual (ICD-10-PCS; 2021-07-02)
DX: A41.9 Sepsis, unspecified organism (principal); J96.01 Acute respiratory failure with hypoxia; N17.0 Acute kidney failure with tubular necrosis; E11.00 Type 2 diabetes mellitus with hyperosmolarity without nonketotic hyperglycemic-hyperosmolar coma (NKHHC); J69.0 Pneumonitis due to inhalation of food and vomit; G92.8 Other toxic encephalopathy; E43 Unspecified severe protein-calorie malnutrition; K57.91 Diverticulosis of intestine, part unspecified, without perforation or abscess with bleeding; K56.7 Ileus, unspecified; I96 Gangrene, not elsewhere classified; E11.52 Type 2 diabetes mellitus with diabetic peripheral angiopathy with gangrene; E88.09 Other disorders of plasma-protein metabolism, not elsewhere classified; E83.52 Hypercalcemia; E11.22 Type 2 diabetes mellitus with diabetic chronic kidney disease; N28.1 Cyst of kidney, acquired; K40.20 Bilateral inguinal hernia, without obstruction or gangrene, not specified as recurrent; E78.00 Pure hypercholesterolemia, unspecified; I35.0 Nonrheumatic aortic (valve) stenosis; E83.42 Hypomagnesemia; D64.9 Anemia, unspecified; E78.5 Hyperlipidemia, unspecified; N28.89 Other specified disorders of kidney and ureter; R94.31 Abnormal electrocardiogram [ECG] [EKG]; R13.12 Dysphagia, oropharyngeal phase; I46.9 Cardiac arrest, cause unspecified; E66.9 Obesity, unspecified; K56.41 Fecal impaction; K57.30 Diverticulosis of large intestine without perforation or abscess without bleeding; E11.69 Type 2 diabetes mellitus with other specified complication; M86.8X7 Other osteomyelitis, ankle and foot; Z53.9 Procedure and treatment not carried out, unspecified reason; R65.20 Severe sepsis without septic shock; Z20.822 Contact with and (suspected) exposure to COVID-19; I12.9 Hypertensive chronic kidney disease with stage 1 through stage 4 chronic kidney disease, or unspecified chronic kidney disease; N18.30 Chronic kidney disease, stage 3 unspecified; Z86.73 Personal history of transient ischemic attack (TIA), and cerebral infarction without residual deficits; Z79.4 Long term (current) use of insulin; Z79.899 Other long term (current) drug therapy; Z79.2 Long term (current) use of antibiotics; Z79.82 Long term (current) use of aspirin; Z68.24 Body mass index [BMI] 24.0-24.9, adult; Z83.3 Family history of diabetes mellitus; Z82.49 Family history of ischemic heart disease and other diseases of the circulatory system; I25.2 Old myocardial infarction
CPT/HCPCS: 31500; 36415; 36600; 71045; 71250; 74018; 74176; 78580; 80048; 80053; 80061; 80202; 80305; 81003; 82248; 82375; 82550; 82607; 82728; 82746; 82805; 82962; 83036; 83540; 83550; 83605; 83735; 84100; 84145; 84443; 84484; 85018; 85025; 85379; 86850; 86900; 87070; 87426; 93005; 93306; 93970; 94002; 94003; 94640; 99291; A6261; C9113; J0282; J0360; J0461; J1815; J2250; J2405; J2543; J2765; J3010; J3370; J3490; J7030; J7050; J7060; J7608; A4315